=== PATIENT | male | born 1960 | race Caucasian/White ===

== ENCOUNTER 2018-05-13 06:15 | Emergency (ER) | payer OTHER ==
[~2018-05-13 06:15] MED LIST: TRAMADOL50 MG PO
--- NOTE | 2018-05-13 06:33 | ED GI/GU/ABDOMINAL COMPLAINT ---
See Addendum History of Present Illness General Chief Complaint: General Adult Stated Complaint: RIGHT SIDE PAIN, BLOOD IN URINE PER PT Source: patient, old records Exam Limitations: no limitations Vital Signs & Intake/Output Vital Signs & Intake/Output . Allergies Coded Allergies: meperidine (From Demerol) (Mild, NAUSEA 11/13/16) Triage Nurses Notes Reviewed? yes Onset: Last week Duration: week(s):, constant, continues in ED Timing: recent history Quality/Severity: aching, mild, moderate Location: right lower quadrant, right upper quadrant Radiation: no radiation Activities at Onset: rest Prior Abdominal Problems: none Past Sexual History: Unobtainable at this time No Modifying Factors: none Associated Symptoms: abdominal pain, hematuria HPI: 10 days prior to admission patient complains of right upper quadrant my lower quadrant pain described as achy mild to moderate in severity nonradiating waxing and waning over this time. He has noticed gross hematuria in the morning and clears during the day. He denies fever chills nausea vomiting diarrhea chest pain cough shortness of breath headache dysuria rash.. (Ady Muhammad MD) Reconcile Medications Metformin HCl 500 MG TABLET 1 TAB PO DAILY DIABETES (Reported) (Saji Kay DO) Past History Travel History Traveled to [place] past 21 day No Medical History Any Pertinent Medical History? see below for history Gastrointestinal: hiatal hernia Hepatic: cholelithiasis Surgical History Surgical History: cholecystectomy, HIATAL HERNIA REPAIR Psychosocial History Who do you live with Family Services at Home None What is your primary language Thai Family History Hx Contributory? No (Ady Muhammad MD) Review of Systems Review of Systems Constitutional: Reports: no symptoms. EENTM: Reports: no symptoms. Respiratory: Reports: no symptoms. Cardiovascular: Reports: no symptoms. GI: Reports: see HPI, abdominal pain. Genitourinary: Reports: see HPI, hematuria. Musculoskeletal: Reports: no symptoms. Skin: Reports: no symptoms. Neurological/Psychological: Reports: no symptoms. Hematologic/Endocrine: Reports: no symptoms. Immunologic/Allergic: Reports: no symptoms. All Other Systems: Reviewed and Negative (Ady Muhammad MD) Physical Exam Physical Exam General Appearance: well developed/nourished, alert, awake, comfortable, obese Head: atraumatic, normal appearance Eyes: Bilateral: normal appearance, PERRL, EOMI, normal inspection. Ears, Nose, Throat, Mouth: hearing grossly normal, moist mucous membrane Neck: normal inspection, supple, full range of motion, normal alignment Respiratory: normal breath sounds, chest non-tender, no respiratory distress, quiet respiration, lungs clear Cardiovascular: regular rate/rhythm, normal peripheral pulses, norml femoral pulses equa Peripheral Pulses: 4+ carotid (R), 4+ carotid (L) Gastrointestinal: normal bowel sounds, soft, non-tender, no organomegaly Male Genitals: normal genitalia Back: normal inspection, normal range of motion, no vertebral tenderness Extremities: normal range of motion, no ligament instability Neurologic/Psych: no motor/sensory deficits, awake, alert, oriented x 3, normal gait, normal mood/affect, 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 No Sepsis Present: No Sepsis Focused Exam Completed? No (Sabina ROJAS,Ady) Progress Differential Diagnosis: appendicitis, pancreatitis, PUD/GERD, ureterolithiasis, UTI/pyelo Plan of Care: Orders Procedure Date/time Status Add-on Test (ER Only) 05/13 0650 Active URINALYSIS 05/13 623 Complete PARTIAL THROMBOPLASTIN TIME 05/13 623 Complete PROTHROMBIN TIME 05/13 623 Complete LIPASE 05/13 623 Complete COMPREHENSIVE METABOLIC PANEL 05/13 623 Complete CBC WITHOUT DIFFERENTIAL 05/13 623 Complete EKG 05/13 623 Active Laboratory Tests 05/13/18 0736: Urine Color YEL, Urine Clarity CLEAR, Urine pH 6.0, Ur Specific [place] 1.015, Urine Protein NEG, Urine Ketones NEG, Urine Nitrite NEG, Urine Bilirubin NEG, Urine Urobilinogen 0.2, Ur Leukocyte Esterase NEG, Ur Microscopic EXAM NOT REQUIRED, Urine Hemoglobin NEG, Urine Glucose NEG 05/13/18 0651: Anion Gap 11, Estimated GFR > 60, BUN/Creatinine Ratio 23.8, Glucose 122 H, Calcium 9.6, Total Bilirubin 0.6, AST 35, ALT 52, Alkaline Phosphatase 96, Total Protein 7.2, Albumin 4.5, Globulin 2.7, Albumin/Globulin Ratio 1.7, Lipase 55, PT 11.1, INR 1.02, APTT 31, CBC w Diff NO MAN DIFF REQ, RBC 5.28, MCV 93.5, MCH 31.7 H, MCHC 33.9, RDW 13.5, MPV 8.0, Gran % 75.8 H, Lymphocytes % 15.0 L, Monocytes % 4.4, Eosinophils % 4.7, Basophils % 0.1, Absolute Granulocytes 6.1, Absolute Lymphocytes 1.2, Absolute Monocytes 0.4, Absolute Eosinophils 0.4, Absolute Basophils 0 Initial ED EKG: none Hand-Off Endorsed To: Saji Kay DO Endorsed Time: 0700 Pending: CT, consult, labs (Ady Muhammad MD) Departure Departure Disposition: STILL A PATIENT Condition: Stable Clinical Impression Primary Impression: Hematuria Secondary Impressions: Abdominal pain Referrals: Reji Figueroa MD (PCP/Family) Departure Forms: Customer Survey General Discharge Information (Ady Muhammad MD) Departure Comments 05/13/18 The patient was signed out to me by Dr. Muhammad. CT scan results are essentially negative. The patient is asymptomatic at this time. I'm awaiting a callback from Dr. Suarez (Saji Kay DO)
[2018-05-13 07:01] LABS: ABSOLUTE BASOPHIL COUNT 0 /CUMM (0.0-0.2); ABSOLUTE EOSINOPHIL COUNT 0.4 /CUMM (0.0-0.7); ABSOLUTE GRANULOCYTE CT 6.1 /CUMM (1.4-6.5); ABSOLUTE LYMPH COUNT 1.2 /CUMM (1.2-3.4); ABSOLUTE MONOCYTE COUNT 0.4 /CUMM (0.10-0.60); BASOPHIL % 0.1 % (0.0-2.0); EOSINOPHIL % 4.7 % (0-5); GRANULOCYTE % 75.8 % (42.2-75.2); HEMATOCRIT 49.3 % (42-52); MEAN CORPUSCULAR HGB 31.7 PG (27.0-31.0); MEAN CORPUSCULAR HGB CONC 33.9 G/DL (33.0-37.0); MEAN CORPUSCULAR VOLUME 93.5 FL (80.0-94.0); PLATELET COUNT 259 /CUMM (130-400); RBC DISTRIBUTION WIDTH 13.5 % (11.5-14.5); RED BLOOD CELL CT 5.28 /CUMM (4.70-6.10)
[2018-05-13 07:13] LABS: PT 11.1 SEC (9.4-12.5); PTT 31 SEC (25-37)
[2018-05-13] MEDS ORDERED: METFORMIN HCL500 M3 PO (08:15)
--- NOTE | 2018-05-13 08:21 | CT SCAN REPORT ---
EXAMINATION: CT ABDOMEN AND PELVIS WITHOUT CONTRAST CLINICAL INFORMATION: Gross hematuria. History of prostate cancer. COMPARISON: CT abdomen pelvis 08/05/2013. TECHNIQUE: Multidetector volumetric imaging was performed from the superior aspect of the liver through the pubic symphysis. Sagittal and coronal reformatted images were obtained on the technologist's workstation. DLP: 901 mGy-cm FINDINGS: LUNG BASES: Partial visualization is made of diffuse coronary artery calcific atherosclerosis. The visualized lung bases are clear. LIVER, SPLEEN, GALLBLADDER, AND BILIARY TREE: Diffuse hypodensity of the liver relative to the spleen is present and is consistent with hepatic steatosis. No focal hepatic lesions are identified. Benign-appearing curvilinear peripheral calcifications are noted laterally within the spleen unchanged compared with 08/05/2013 possibly representing the sequela of remote trauma. Cholecystectomy clips are present. PANCREAS: Unremarkable. ADRENAL GLANDS: Unremarkable. KIDNEYS AND URETERS: No urolithiasis is noted. No hydronephrosis or ureterectasis is identified. BLADDER: Urinary bladder demonstrates mild physiologic distention. No gross urinary bladder wall lesions are identified. GASTROINTESTINAL TRACT: The small and large bowel are unremarkable. The appendix is unremarkable. ABDOMINAL WALL: A small periumbilical hernia containing fat measuring 1.5 cm in diameter is noted. LYMPH NODES: Normal. VASCULAR: Mild scattered aortoiliac calcific atherosclerosis is present. PELVIC VISCERA: No pelvic masses are identified. Seminal vesicles are grossly normal in appearance. No gross prostatic enlargement is visualized. OSSEOUS STRUCTURES: Unremarkable. IMPRESSION: 1. Unenhanced CT of the abdomen pelvis without specific findings to correlate with a history of hematuria. No urolithiasis. Grossly normal appearance of the urinary bladder. No evidence of pelvic masses or pelvic lymphadenopathy. 2. Diffuse hepatic steatosis. 3. Partially visualized diffuse coronary artery calcific atherosclerosis. 4. Status post cholecystectomy. 5. Benign-appearing chronic splenic calcifications unchanged compared with 08/05/2013 which may represent the sequela of remote trauma.
[2018-05-13 09:28] VITALS: BP 126/88
== END 2018-05-13 09:28 ==
LOC: ERH 06:15
PROVIDERS: Emergency Medicine
DX: R31.9 Hematuria, unspecified (principal); R10.31 Right lower quadrant pain; R10.11 Right upper quadrant pain
CPT/HCPCS: 74176; 81003; 93005; 93010